=== PATIENT | female | born 1940 | race Caucasian/White ===

== ENCOUNTER → 2016-11-14 | Outpatient (CLI) | payer MEDICARE ==
[~2016-11-14] MED LIST: ASPIRIN81 MG PO; BENADRYL25 M3 PO; BIOTIN800 MCG PO; CALCITRATE + V1 EACH PO; CLONIDINE HCL0.1 MG PO; COREG6.25 MG PO; COZAAR100 MG PO; FISH OIL 1,2001 EAC1 PO; LASIX20 MG PO; LIPITOR40 MG PO; LISINOPRIL10 MG PO; METOPROLOL TAR25 MG PO; POTASSIUM CHLO20 ME1 PO; RANITIDINE HCL150 M1 PO
--- NOTE | ~2016-11-14 | TH ---
Unit #: [id number] #: [id number] Patient: SPEEDY CHO [id number] [address] [place], [place] [address] [id number] MR#: [id number] NAME: SPEEDY CHO. : 1940 SEX: F STUDY DATE/TIME: 11/14/2016 UNIT: [facility] ROOM: STUDY DESCRIPTION: Stress nuclear and ECG Attending Physician: Britton Valverde M.D. Referring Physician: Britton Valverde M.D. Primary Care Physician: Lise Marti M.D. CARDIOLOGY REPORT EXAM Stress nuclear and ECG INDICATION Hypertension, dyslipidemia, preoperative evaluation for knee surgery, inability to exercise adequately. SUMMARY The patient received Lexiscan intravenously while at rest as well as technetium-99m Cardiolite 11.33 and 35.7 mCi at rest and stress respectively. Appropriate views were obtained. FINDINGS There were nonspecific ST changes noted in the inferior and lateral alvarez both at rest and stress. There is no diagnostic ST change, no significant dysrhythmia and no heart block. Patient experienced nausea and shortness of breath with Lexiscan as well as chest tightness. The heart rate increased from 77 to 108 and blood pressure decreased from 179/67 to 165/62. Perfusion analysis demonstrates normal perfusion throughout the myocardium both at rest and stress. There is apical thinning and breast attenuation artifact present. Gated perfusion wall motion analysis demonstrates end-diastolic volume 51 mL, ejection fraction greater than 65%. Planar images demonstrate no significant patient motion either at rest of stress. There is no significant lung uptake, LV or RV enlargement. Summed stress score is 3, summed difference score is 2. Changes involve primarily border detection at the base. IMPRESSION 1. Myocardial perfusion scan shows no ischemia or infarction with Lexiscan. 2. Patient would be considered low risk for noncardiac surgery based on this study. 3. Normal wall motion with excellent ejection fraction and normal left ventricular size. 4. Patient would be okay for anesthesia based on this study. Unit #: [id number] #: [id number] Patient: SPEEDY CHO Dictated by... Johann Martinez/emily TD: 11/14/2016 20:45 JOB #: [id number] CARDIOLOGY REPORT Page 1 of 1 X Britton Valverde MD CARDIOLOGY REPORT
== END | disposition home or self-care (01) ==
LOC: CNUC 06:16
DX: Z01.810 Encounter for preprocedural cardiovascular examination (principal); I50.9 Heart failure, unspecified
CPT/HCPCS: 78452; 93017; 93306; A9500; J2785